=== PATIENT | female | born 1970 | race Caucasian/White ===

== ENCOUNTER 2016-08-06 03:47 | Inpatient (IN) | payer OTHER ==
[~2016-08-06] VITALS: Ht 162.6 cm; Wt 126.6 kg
--- NOTE | 2016-08-06 04:16 | ED GI/GU/ABDOMINAL COMPLAINT ---
See Addendum History of Present Illness General Chief Complaint: Abdominal Pain/Flank Pain Stated Complaint: ABD PAIN X 3 DAYS, NAUSEA, VOMITING, DIARRHEA Source: patient, family, old records Exam Limitations: no limitations Vital Signs & Intake/Output Vital Signs & Intake/Output Vital Signs Date Time Temp Pulse Resp B/P B/P Pulse O2 O2 Flow FiO2 Mean Ox Delivery Rate 08/06 624 97.4 87 18 109/55 97 Room Air 08/06 440 98.6 100 18 123/73 93 Room Air 08/06 044 95 Room Air Allergies Coded Allergies: No Known Allergies (08/06/16) Reconcile Medications Levothyroxine Sodium (Synthroid) 100 MCG TABLET 1 TAB PO DAILY HYPOTHYROID ( Reported) Metformin HCl (Metformin HCl ER) 500 MG TAB.ER.24H 1 TAB PO BID BORDERLINE DM (Reported) Triage Nurses Notes Reviewed? yes LMP (ages 10-50): unknown ? n Is pt currently ? No Onset: 3 days Duration: day(s):, constant, continues in ED Timing: recent history Quality/Severity: aching, cramping, moderate, vomiting Location: suprapubic Radiation: no radiation Activities at Onset: none Prior Abdominal Problems: none Past Sexual History: Unobtainable at this time Modifying Factors: Worsens With: eating, movement, palpation. Associated Symptoms: abdominal pain, diaphoresis, fever/chills, loss of appetite , nausea/vomiting HPI: 3 days prior to admission patient complains of achy progressive suprapubic pain nonradiating constant associated with nausea vomiting decreased appetite dysuria chills. She denies fever chest pain cough shortness of breath headache rash bleeding. Past History Travel History Traveled to [place] past 21 day No Medical History Any Pertinent Medical History? none Surgical History Surgical History: Family History Hx Contributory? No Review of Systems Review of Systems Constitutional: Reports: see HPI, chills, malaise. EENTM: Reports: no symptoms. Respiratory: Reports: no symptoms. Cardiovascular: Reports: no symptoms. GI: Reports: see HPI, abdominal pain, nausea, vomiting. Genitourinary: Reports: see HPI, dysuria. Musculoskeletal: Reports: no symptoms. Skin: Reports: no symptoms. Neurological/Psychological: Reports: no symptoms. Hematologic/Endocrine: Reports: no symptoms. Immunologic/Allergic: Reports: no symptoms. All Other Systems: Reviewed and Negative Physical Exam Physical Exam General Appearance: well developed/nourished, alert, awake, anxious, moderate distress, obese Head: atraumatic, normal appearance Eyes: Bilateral: normal appearance, PERRL, EOMI, normal inspection. Ears, Nose, Throat, Mouth: hearing grossly normal, dry mucous membranes Neck: normal inspection, supple, full range of motion, normal alignment Respiratory: normal breath sounds, chest non-tender, no respiratory distress, quiet respiration, lungs clear Cardiovascular: regular rate/rhythm, normal peripheral pulses, norml femoral pulses equa Peripheral Pulses: 4+ carotid (R), 4+ carotid (L) Gastrointestinal: normal bowel sounds, soft, no organomegaly, guarding, tenderness Back: normal inspection, normal range of motion Extremities: normal range of motion, no ligament instability Neurologic/Psych: no motor/sensory deficits, awake, alert, oriented x 3, normal gait, normal mood/affect, 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 No Severe Sepsis Present: No Septic Shock Present: No Progress Differential Diagnosis: cholecystitis, diverticulitis, gastritis, UTI/pyelo Plan of Care: Orders Procedure Date/time Status Admit to inpatient 08/06 0715 Active URINE 08/07 411 Complete URINALYSIS 08/07 411 Complete LIPASE 08/07 411 Complete COMPREHENSIVE METABOLIC PANEL 08/07 411 Complete CBC WITHOUT DIFFERENTIAL 08/07 411 Complete Current Medications Sig/Evy Start time Last Medication Dose Stop Time Status Admin Sodium Chloride 1,000 ML BOLUS ONE 08/06 0630 AC 08/06 (Normal Saline 0.9%) 08/06 0729 0634 Laboratory Tests 08/06/16 0448: Anion Gap 13, Estimated GFR > 60, BUN/Creatinine Ratio 17.1, Glucose 92, Calcium 8.8, Total Bilirubin 1.3, AST 15, ALT 34, Alkaline Phosphatase 89, Total Protein 6.5, Albumin 3.6, Globulin 2.9, Albumin/Globulin Ratio 1.2, Lipase 11 L 08/06/16 0422: CBC w Diff MAN DIFF ORDERED, RBC 4.72, MCV 91.0, MCH 30.9, RDW 12.9, MPV 6.9 L, Gran % 83.0 H, Lymphocytes % 10.4 L, Monocytes % 6.2, Eosinophils % 0.3, Basophils % 0.1, Absolute Granulocytes 17.8 H, Segmented Neutrophils 87 H, Absolute Lymphocytes 2.2, Lymphocytes 9 L, Monocytes 3, Absolute Monocytes 1.3 H, Eosinophils 1, Absolute Eosinophils 0.1, Absolute Basophils 0, Platelet Estimate INCREASED, Polychromasia 1+, Ovalocytes FEW, Stomatocytes FEW, PUBS MCHC 34.0, Fld Total RBCs Counted 100 08/06/16 0416: Urine Color YEL, Urine Clarity HAZY H, Urine pH 6.0, Ur Specific [place] 1.020, Urine Protein 100 H, Urine Ketones >=80, Urine Nitrite NEG, Urine Bilirubin NEG @ICTO, Urine Urobilinogen 1.0, Ur Leukocyte Esterase NEG, Ur Microscopic SEDIMENT EXAMINED, Urine RBC 1-3, Urine WBC 3-5 H, Ur Epithelial Cells MOD H, Urine Bacteria MOD H, Hyaline Casts RARE H, Urine Hemoglobin TRACE-INTACT, Urine Glucose NEG, Urine Test NEGATIVE Diagnostic Imaging: Viewed by Me: CT Scan. Discussed w/RAD: CT Scan. Radiology Impression: Perforated diverticulitis without drainable fluid collections. Initial ED EKG: none Hand-Off Endorsed To: CHARI BLAKE,LAZ Shook Endorsed Time: 716 Pending: other (contact w Dr. Cristobal) Departure Departure Time of Disposition: 627 Disposition: STILL A PATIENT Condition: Stable Clinical Impression Primary Impression: Perforated diverticulum of large intestine Secondary Impressions: Leukocytosis, unspecified Qualifiers: Leukocytosis type: unspecified Qualified Code: D72.829 - Elevated white blood cell count, unspecified Departure Forms: Customer Survey General Discharge Information Admission Note Spoke With: GUMARO BLAKE,GRISELDA N. Documentation of Exam: Documentation of any treatments & extenuating circumstances including Concerns Regarding Discharge (functional status, medication knowledge or non-compliance, living conditions, etc.) that warrant an admission rather than observation: IV antibiotics serial lab exams IV analgesia NPO IV fluids surgical evaluation and management continuing care discharge planning.
[2016-08-06 04:33] LABS: ABSOLUTE BASOPHIL COUNT 0 /CUMM (0.0-0.2); ABSOLUTE EOSINOPHIL COUNT 0.1 /CUMM (0.0-0.7); ABSOLUTE GRANULOCYTE CT 17.8 /CUMM (1.4-6.5); ABSOLUTE LYMPH COUNT 2.2 /CUMM (1.2-3.4); ABSOLUTE MONOCYTE COUNT 1.3 /CUMM (0.10-0.60); BASOPHIL % 0.1 % (0.0-2.0); EOSINOPHIL % 0.3 % (0-5); HEMATOCRIT 42.9 % (37-47); MEAN CORPUSCULAR HGB 30.9 PG (27.0-31.0); MEAN PLATELET VOLUME 6.9 FL (7.4-10.4); PLATELET COUNT 435 /CUMM (130-400); RBC DISTRIBUTION WIDTH 12.9 % (11.5-14.5); RED BLOOD CELL CT 4.72 /CUMM (4.20-5.40); WHITE BLOOD CELL COUNT 21.5 /CUMM (4.8-10.8)
--- NOTE | 2016-08-06 06:19 | CT SCAN REPORT ---
EXAMINATION: CT ABDOMEN AND PELVIS WITH CONTRAST CLINICAL INFORMATION: Lower abdominal pain. COMPARISON: None. TECHNIQUE: Contiguous axial thin section helical images of the abdomen and pelvis were performed following the administration of 95 mL of intravenous Optiray 320. The data set was reformatted in the coronal and sagittal planes and reviewed on an independent workstation. DLP: 1545 mGy-cm. FINDINGS: The visualized lung bases are clear. The visualized portions of the heart are unremarkable. The liver is of normal size and attenuation without focal lesions nor intrahepatic biliary ductal dilation. A normal gallbladder is identified. There is no wall thickening or discernible pericholecystic fluid. The spleen, pancreas, adrenal glands are unremarkable. Both kidneys are of normal size and attenuation without hydronephrosis or nephrolithiasis. Following the administration of IV contrast, prompt symmetric nephrograms are displayed. There is no abdominal free fluid. There is neither mesenteric nor retroperitoneal lymphadenopathy. There are scattered nonpathologically enlarged mesenteric lymph nodes present. There is scattered sigmoid diverticulosis. About the sigmoid colon, there is wall thickening and extensive adjacent fat stranding. In addition, there is extraluminal gas. There are no drainable fluid collections. Otherwise, unremarkable unopacified loops of small and large bowel are present. There is no pelvic free fluid. The urinary bladder is unremarkable. There is neither pelvic nor inguinal lymphadenopathy. Bone windows: Neither sclerotic nor lytic bone lesions are identified. IMPRESSION: Perforated diverticulitis without drainable fluid collections. The aforementioned was communicated to Dr. Garcia at 0614 hours.
[2016-08-06] MEDS ORDERED: METFORMIN HCL500 M4 PO (06:26)
[2016-08-06] MEDS ORDERED: SYNTHROID100 MCG PO (06:26)
--- NOTE | 2016-08-06 08:17 | Admission Core Measures ---
Admission Lab Results I reviewed the following labs: Laboratory Tests 08/06 08/06 5901 8112 Chemistry Sodium (137 - 145 mmol/L) 133 L Potassium (3.5 - 5.1 mmol/L) 3.6 Chloride (98 - 107 mmol/L) 98 Carbon Dioxide (22 - 30 mmol/L) 22 Anion Gap (5 - 16) 13 BUN (7 - 17 mg/dL) 12 Creatinine (0.5 - 1.0 mg/dL) 0.7 Estimated GFR (>60 ml/min) > 60 BUN/Creatinine Ratio (7 - 25 %) 17.1 Glucose (65 - 99 mg/dL) 92 Calcium (8.4 - 10.2 mg/dL) 8.8 Total Bilirubin (0.2 - 1.3 mg/dL) 1.3 AST (14 - 36 U/L) 15 ALT (9 - 52 U/L) 34 Alkaline Phosphatase (<127 U/L) 89 Total Protein (6.3 - 8.2 g/dL) 6.5 Albumin (3.5 - 5.0 g/dL) 3.6 Globulin (1.9 - 4.2 gm/dL) 2.9 Albumin/Globulin Ratio (1.1 - 2.2 %) 1.2 Lipase (23 - 300 U/L) 11 L Hematology CBC w Diff MAN DIFF ORDERED WBC (4.8 - 10.8 /CUMM) 21.5 H RBC (4.20 - 5.40 /CUMM) 4.72 Hgb (12.0 - 16.0 G/DL) 14.6 Hct (37 - 47 %) 42.9 MCV (81.0 - 99.0 FL) 91.0 MCH (27.0 - 31.0 PG) 30.9 RDW (11.5 - 14.5 %) 12.9 Plt Count (130 - 400 /CUMM) 435 H MPV (7.4 - 10.4 FL) 6.9 L Gran % (42.2 - 75.2 %) 83.0 H Lymphocytes % (20.5 - 51.1 %) 10.4 L Monocytes % (1.7 - 9.3 %) 6.2 Eosinophils % (0 - 5 %) 0.3 Basophils % (0.0 - 2.0 %) 0.1 Absolute Granulocytes (1.4 - 6.5 /CUMM) 17.8 H Segmented Neutrophils (42.2 - 75.2 %) 87 H Absolute Lymphocytes (1.2 - 3.4 /CUMM) 2.2 Lymphocytes (20.5 - 51.1 %) 9 L Monocytes (1.7 - 9.3 %) 3 Absolute Monocytes (0.10 - 0.60 /CUMM) 1.3 H Eosinophils (0 - 5.0 %) 1 Absolute Eosinophils (0.0 - 0.7 /CUMM) 0.1 Absolute Basophils (0.0 - 0.2 /CUMM) 0 Platelet Estimate (ADEQUATE) INCREASED Polychromasia 1+ Ovalocytes FEW Stomatocytes FEW PUBS MCHC (33.0 - 37.0 G/DL) 34.0 Other Body Source Fld Total RBCs Counted (%) 100 08/06 0416 Urines Urine Color (YEL,AMB,STR) YEL Urine Clarity (CLEAR) HAZY H Urine pH (5.0 - 8.0) 6.0 Ur Specific [place] (1.001 - 1.035) 1.020 Urine Protein (NEG,<30 MG/DL) 100 H Urine Ketones (NEG) >=80 Urine Nitrite (NEG) NEG Urine Bilirubin (NEG) NEG@ICTO Urine Urobilinogen (0.1 - 1.0 EU/dl) 1.0 Ur Leukocyte Esterase (NEG) NEG Ur Microscopic SEDIMENT EXAMINED Urine RBC (0 - 5 /HPF) 1-3 Urine WBC (0 - 2 /HPF) 3-5 H Ur Epithelial Cells (NONE,FEW) MOD H Urine Bacteria (NEG/NONE) MOD H Hyaline Casts (0/LPF) RARE H Urine Hemoglobin (NEG) TRACE-INTACT Urine Glucose (N MG/DL) NEG Urine Test NEGATIVE Admission Meds I reviewed the following Meds: Current Medications Sig/Evy Start time Last Medication Dose Stop Time Status Admin Ceftriaxone Sodium 1,000 MG DAILY 08/07 0600 UNVr (Rocephin) Heparin Sodium 5,000 UNIT Q8 08/06 1400 UNVr (Porcine) Ketorolac 30 MG Q6-PRN PRN 08/06 0815 UNVr Tromethamine (Toradol) Levothyroxine Sodium 0.1 MG DAILY AC 08/06 0815 UNVr (Synthroid) Metronidazole 500 MG IQ8 08/06 1400 UNVr (Flagyl) N/A 1 UNIT (No Carrier) Non-Formulary 0 SEE ADMIN CRITERIA 08/06 814 UNVr Medication (NON FORMULARY) Ondansetron HCl 4 MG Q6P PRN 08/06 814 UNVr (Zofran) Pantoprazole Sodium 40 MG DAILY 08/06 1000 UNVr (Protonix) Potassium Chloride 20 MEQ Q8H 08/06 814 UNVr (KCl 20MEQ in D5W NS 1000ML) Dextrose/Sodium 1,000 ML Chloride (D5-Normal Saline) Acute Coronary Syndrome Inclusion Criteria ACS Diagnosis No Inpatient Core Measures LDL Reminder: If No, please order W/I first 24hr of stay Congestive Heart Failure Inclusion Criteria CHF Diagnosis No Cerebrovascular accident Inclusion Criteria CVA/TIA Diagnosis No Inpatient Core Measures Bedside Swallow Eval Reminder: If BSE failed, place ST order Antithrombotic Reminder: Order Antithrombotic Medication by end of day 2 Antithrombotic Reminder: Document Reason Antithrombotic Not ordered by end of day 2 AFIB/Flutter Reminder: If Present, add to problem list AFIB/Flutter Reminder: Order Anticoag Medication for pts with AFIB/Flutter Atherosclerosis Reminder: If Present, add to problem list LDL Reminder: If No, please order W/I first 24hr of stay PT Order Reminder: If No, please order Venous thromboembolism Inpatient Core Measures VTE Risk Factors: Age > 40, Obesity No [facility] VTE prophylaxis d/t No contraindications No VTE Pharm Prophylaxis d/t No contraindications Inclusion Criteria - Per Current guidelines, there needs to be overlap - treatment for the first 5 days of Warfarin therapy. - Parenteral Anticoagulation (IV or SC) needs to be - given along with Warfarin therapy. VTE Diagnosis No VTE Type NONE VTE Confirmed by (Test) NONE Problem List As ranked by this Provider includes Assessment & Plan 1. Diverticulitis of colon with perforation HOME MEDS Home Med List Levothyroxine Sodium (Synthroid) 100 MCG TABLET 1 TAB PO DAILY HYPOTHYROID ( Reported) Metformin HCl (Metformin HCl ER) 500 MG TAB.ER.24H 1 TAB PO BID BORDERLINE DM (Reported)
--- NOTE | 2016-08-06 08:28 | History & Physical Pre-Op ---
General Information and HPI MD Statement: I have seen and personally examined MILES JOHNSON and documented this H&P. The patient is a 45 year old F who presented with a patient stated chief complaint of [ABDOMINAL PAIN]. Source of Information: patient Exam Limitations: no limitations History of Present Illness: This 45 year old morbidly obese white female with history of hypothyroidism presents with 2 days of abdominal pain, nausea, and bloating. She recalls having similar symptoms 3 weeks ago as well, which seemed to resolve after a few days. Due to the "crampy pain" with this most recent episode, which she reports as lower central discomfort, aggravated by movement, she presented to the ED this morning. She recalls a fever of 102 associated with chills & sweats at home in the last 2 days. She reports decreased appetite and nausea since the onset of her abdominal pain, so she has not been eating food for the last 2-3 days. Reports diarrhea and pain with urination, but not urinating air or gas and no true dysuria. She does not believe she has had an episode like this in her past. Allergies/Medications Allergies: Coded Allergies: No Known Allergies (08/06/16) Home Med list Levothyroxine Sodium (Synthroid) 100 MCG TABLET 1 TAB PO DAILY HYPOTHYROID ( Reported) Metformin HCl (Metformin HCl ER) 500 MG TAB.ER.24H 1 TAB PO BID BORDERLINE DM (Reported) Past History Medical History Neurological: NONE EENT: NONE Cardiovascular: NONE Respiratory: NONE Gastrointestinal: NONE Hepatic: NONE Renal: NONE Musculoskeletal: NONE Psychiatric: NONE Endocrine: hypothyroidism, BORDERLINE DM Blood Disorders: NONE Cancer(s): NONE SINK CUTTER/Reproductive: NONE Surgical History Pertinent Surgical History: Past Family/Social History Family History Relations & Conditions if any MOTHER Breast cancer in mother FATHER Stomach cancer Psychosocial History Where Do You Live? Home Who Do You Live With? spouse, child Services at Home None Primary Language: Slovak Smoking Status: Never Smoked ETOH Use: occasional use Review of Systems Review of Systems: admits: abdominal pain, nausea, fevers/chills/sweats, bloating, diarrhea denies: shortness of breath, chest pains, dizziness Exam & Diagnostic Data Last 24 Hrs of Vital Signs/I&O Vital Signs Date Time Temp Pulse Resp B/P B/P Pulse O2 O2 Flow FiO2 Mean Ox Delivery Rate 08/06 0625 97.4 87 18 109/55 97 Room Air 08/06 0441 98.6 100 18 123/73 93 Room Air 08/06 0440 95 Room Air Intake & Output 08/06 1600 08/06 0800 08/06 0000 Intake Total 1400 Output Total 200 Balance 1200 Intake, IV 1400 Output, Urine 200 Patient 280 lb Weight Weight Reported by Patient Measurement Method Physical Exam: General - alert & oriented x 3. comfortable. no acute distress. Skin - warm, dry, and smooth Lungs - clear bilaterally. no w/r/r. Cardiac - s1s2. reg. Abdomen - obese. active bowel sounds appreciated. mild suprapubic tenderness. no acute abdominal findings. Extremities - warm bilaterally. no c/c/e. calves soft and nontender b/l. pulses equal throughout. Neuro - no focal deficits. motor and sensory function equal and full. Last 24 Hrs of Labs/Perico: Laboratory Tests 08/06/16447: Anion Gap 13, Estimated GFR > 60, BUN/Creatinine Ratio 17.1, Glucose 92, Calcium 8.8, Total Bilirubin 1.3, AST 15, ALT 34, Alkaline Phosphatase 89, Total Protein 6.5, Albumin 3.6, Globulin 2.9, Albumin/Globulin Ratio 1.2, Lipase 11 L 08/06/16 0422: CBC w Diff MAN DIFF ORDERED, RBC 4.72, MCV 91.0, MCH 30.9, RDW 12.9, MPV 6.9 L, Gran % 83.0 H, Lymphocytes % 10.4 L, Monocytes % 6.2, Eosinophils % 0.3, Basophils % 0.1, Absolute Granulocytes 17.8 H, Segmented Neutrophils 87 H, Absolute Lymphocytes 2.2, Lymphocytes 9 L, Monocytes 3, Absolute Monocytes 1.3 H, Eosinophils 1, Absolute Eosinophils 0.1, Absolute Basophils 0, Platelet Estimate INCREASED, Polychromasia 1+, Ovalocytes FEW, Stomatocytes FEW, PUBS MCHC 34.0, Fld Total RBCs Counted 100 08/06/16 0416: Urine Color YEL, Urine Clarity HAZY H, Urine pH 6.0, Ur Specific [place] 1.020, Urine Protein 100 H, Urine Ketones >=80, Urine Nitrite NEG, Urine Bilirubin NEG @ICTO, Urine Urobilinogen 1.0, Ur Leukocyte Esterase NEG, Ur Microscopic SEDIMENT EXAMINED, Urine RBC 1-3, Urine WBC 3-5 H, Ur Epithelial Cells MOD H, Urine Bacteria MOD H, Hyaline Casts RARE H, Urine Hemoglobin TRACE-INTACT, Urine Glucose NEG, Urine Test NEGATIVE Diagnostic Data Other Results EXAM TYPE: CAT - CT ABD & PELVIS W IV CONTRAST EXAMINATION: CT ABDOMEN AND PELVIS WITH CONTRAST CLINICAL INFORMATION: Lower abdominal pain. COMPARISON: None. TECHNIQUE: Contiguous axial thin section helical images of the abdomen and pelvis were performed following the administration of 95 mL of intravenous Optiray 320. The data set was reformatted in the coronal and sagittal planes and reviewed on an independent workstation. DLP: 1545 mGy-cm. FINDINGS: The visualized lung bases are clear. The visualized portions of the heart are unremarkable. The liver is of normal size and attenuation without focal lesions nor intrahepatic biliary ductal dilation. A normal gallbladder is identified. There is no wall thickening or discernible pericholecystic fluid. The spleen, pancreas, adrenal glands are unremarkable. Both kidneys are of normal size and attenuation without hydronephrosis or nephrolithiasis. Following the administration of IV contrast, prompt symmetric nephrograms are displayed. There is no abdominal free fluid. There is neither mesenteric nor retroperitoneal lymphadenopathy. There are scattered nonpathologically enlarged mesenteric lymph nodes present. There is scattered sigmoid diverticulosis. About the sigmoid colon, there is wall thickening and extensive adjacent fat stranding. In addition, there is extraluminal gas. There are no drainable fluid collections. Otherwise, unremarkable unopacified loops of small and large bowel are present. There is no pelvic free fluid. The urinary bladder is unremarkable. There is neither pelvic nor inguinal lymphadenopathy. Bone windows: Neither sclerotic nor lytic bone lesions are identified. IMPRESSION: Perforated diverticulitis without drainable fluid collections. The aforementioned was communicated to Dr. Garcia at 0614 hours. DICTATED BY: MOISES BENJAMIN MD DATE/TIME DICTATED:08/06/16556 [employer] TECHNICIAN:FARHEEN DATE/TIME TRANSCRIBED:08/06/16556 Assessment/Plan Assessment/Plan: This 45 year old white female with hx hypothyroidism, pre-diabetes, is here with seemingly first episode of acute perforated diverticulitis without abscess and without acute abdominal findings npo / ivf toradol prn pain control continue iv rocephin / flagyl hep sc - dvt ppx protonix iv - gi ppx synthroid / cytomel (home meds) ordered hold metformin for now serial labs and exams d/w As Ranked By This Provider Problem List: 1. Diverticulitis of colon with perforation 2. Morbid obesity 3. Hypothyroidism
[2016-08-06] MEDS ORDERED: CYTOMEL25 MC1 PO (08:34)
[2016-08-06 14:05] VITALS: BP 118/80
--- NOTE | 2016-08-06 17:24 | History & Physical Pre-Op ---
General Information and HPI MD Statement: I have seen and personally examined MILES JOHNSON and documented this H&P. The patient is a 45 year old F who presented with a patient stated chief complaint of []. Source of Information: patient Exam Limitations: no limitations History of Present Illness: CC: abdominal pain HPI: 45-year-old overweight diabetic nonsmoker on medications for hypothyroidism who is been feeling intermittently nauseous for the past month but it wasn't until to 3 days ago when she started having some lower crampy abdominal pain with associated vomiting and diarrhea and chills initially she was doubled over the pain is somewhat better but persistent so she came to the ER, now the pain is not worse on movement there is some dysuria no radiation of the pain to the back and no upper abdominal pain she is still having bowel movements a few of them were green and loose, no obvious blood. This is the first time she's had an episode like this. Otherwise no unusual meals or straining or dehydration recently. Otherwise no changes bowel habits, weight or appetite. I've reviewed the [facility]. No history of GERD, PUD, bleeding problems, heart disease or issues with anesthesia. Allergies/Medications Allergies: Coded Allergies: No Known Allergies (08/06/16) Home Med list Levothyroxine Sodium (Synthroid) 100 MCG TABLET 1 TAB PO DAILY HYPOTHYROID ( Reported) Liothyronine Sodium (Cytomel) 25 MCG TABLET 1 TAB PO BID hypothyroidism ( Reported) Metformin HCl (Metformin HCl ER) 500 MG TAB.ER.24H 1 TAB PO BID BORDERLINE DM (Reported) Past History Medical History Neurological: NONE EENT: NONE Cardiovascular: NONE Respiratory: NONE Gastrointestinal: NONE Hepatic: NONE Renal: NONE Musculoskeletal: NONE Psychiatric: NONE Endocrine: hypothyroidism, BORDERLINE DM Blood Disorders: NONE Cancer(s): NONE 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 Home Who Do You Live With? spouse, child Services at Home None Primary Language: Spanish Smoking Status: Never Smoked ETOH Use: occasional use Review of Systems Review of Systems: Constitutional: No fever, sweats or weight loss ENMT: No sore throat Cardiovascular: No chest pain, palpitations or leg swelling Respiratory: No shortness of breath, cough, or sputum or dyspnea on exertion GI: No GERD or bleeding per rectum : No dysuria or hematuria Musculoskeletal: No new muscle weakness, bone or joint pain Skin / Breast: No jaundice, rashes or itching Psychiatric: No history of drug or alcohol abuse no depression or anxiety Hematologic / lymphatic system: No problems with excessive bleeding, bruising, or blood clots Exam & Diagnostic Data Last 24 Hrs of Vital Signs/I&O I reviewed Vital Signs Date Time Temp Pulse Resp B/P B/P Pulse O2 O2 Flow FiO2 Mean Ox Delivery Rate 08/06 1405 99.8 81 20 118/80 98 Room Air 08/06 1322 97.8 78 18 128/68 97 Room Air 08/06 1125 98.0 80 18 133/67 98 Room Air 08/06 0924 98.0 88 18 126/88 98 Room Air 08/06 0625 97.4 87 18 109/55 97 Room Air 08/06 0441 98.6 100 18 123/73 93 Room Air 08/06 0440 95 Room Air I reviewed Intake & Output 08/06 1600 08/06 0800 08/06 0000 Intake Total 125 1400 Output Total 200 Balance 125 1200 Intake, IV 125 1400 Output, Urine 200 Patient 280 lb 280 lb Weight Weight Reported by Patient Measurement Method Physical Exam: Constitutional: pleasant, no acute distress, conversant Eyes: sclera anicteric ENMT: ears and nose atraumatic, moist mucous membranes, good dentition, no lip lesions Neck: Supple, trachea is midline, no cervical or supraclavicular adenopathy and no palpable thyromegaly Cardiovascular: S1, S2, no murmurs, no peripheral edema Respiratory: clear to auscultation with normal respiratory effort and no intercostal retractions GI: abdomen soft, suprapubic tenderness no rebound, nondistended, no palpable hepatosplenomegaly Extremities / lymphatics: symmetrically warm, free range of motion no peripheral edema, no cervical, supraclavicular, axillary, or inguinal adenopathy Musculoskeletal: Normal gait and station, no digital cyanosis, good muscle strength and tone no atrophy, motor grossly 5 out of 5 throughout Skin: no jaundice, no rashes warm, nondiaphoretic, no areas of erythema or induration Psychiatric: mood and affect are appropriate and alert and oriented to person place and time Last 24 Hrs of Labs/Perico: I reviewed Laboratory Tests 08/06/16 0448: Anion Gap 13, Estimated GFR > 60, BUN/Creatinine Ratio 17.1, Glucose 92, Calcium 8.8, Total Bilirubin 1.3, AST 15, ALT 34, Alkaline Phosphatase 89, Total Protein 6.5, Albumin 3.6, Globulin 2.9, Albumin/Globulin Ratio 1.2, Lipase 11 L 08/06/16 0422: CBC w Diff MAN DIFF ORDERED, RBC 4.72, MCV 91.0, MCH 30.9, RDW 12.9, MPV 6.9 L, Gran % 83.0 H, Lymphocytes % 10.4 L, Monocytes % 6.2, Eosinophils % 0.3, Basophils % 0.1, Absolute Granulocytes 17.8 H, Segmented Neutrophils 87 H, Absolute Lymphocytes 2.2, Lymphocytes 9 L, Monocytes 3, Absolute Monocytes 1.3 H, Eosinophils 1, Absolute Eosinophils 0.1, Absolute Basophils 0, Platelet Estimate INCREASED, Polychromasia 1+, Ovalocytes FEW, Stomatocytes FEW, PUBS MCHC 34.0, Fld Total RBCs Counted 100 08/06/16 0416: Urine Color YEL, Urine Clarity HAZY H, Urine pH 6.0, Ur Specific [place] 1.020, Urine Protein 100 H, Urine Ketones >=80, Urine Nitrite NEG, Urine Bilirubin NEG @ICTO, Urine Urobilinogen 1.0, Ur Leukocyte Esterase NEG, Ur Microscopic SEDIMENT EXAMINED, Urine RBC 1-3, Urine WBC 3-5 H, Ur Epithelial Cells MOD H, Urine Bacteria MOD H, Hyaline Casts RARE H, Urine Hemoglobin TRACE-INTACT, Urine Glucose NEG, Urine Test NEGATIVE Diagnostic Data Other Results EXAM TYPE: CAT - CT ABD & PELVIS W IV CONTRAST EXAMINATION: CT ABDOMEN AND PELVIS WITH CONTRAST CLINICAL INFORMATION: Lower abdominal pain. COMPARISON: None. TECHNIQUE: Contiguous axial thin section helical images of the abdomen and pelvis were performed following the administration of 95 mL of intravenous Optiray 320. The data set was reformatted in the coronal and sagittal planes and reviewed on an independent workstation. DLP: 1545 mGy-cm. FINDINGS: The visualized lung bases are clear. The visualized portions of the heart are unremarkable. The liver is of normal size and attenuation without focal lesions nor intrahepatic biliary ductal dilation. A normal gallbladder is identified. There is no wall thickening or discernible pericholecystic fluid. The spleen, pancreas, adrenal glands are unremarkable. Both kidneys are of normal size and attenuation without hydronephrosis or nephrolithiasis. Following the administration of IV contrast, prompt symmetric nephrograms are displayed. There is no abdominal free fluid. There is neither mesenteric nor retroperitoneal lymphadenopathy. There are scattered nonpathologically enlarged mesenteric lymph nodes present. There is scattered sigmoid diverticulosis. About the sigmoid colon, there is wall thickening and extensive adjacent fat stranding. In addition, there is extraluminal gas. There are no drainable fluid collections. Otherwise, unremarkable unopacified loops of small and large bowel are present. There is no pelvic free fluid. The urinary bladder is unremarkable. There is neither pelvic nor inguinal lymphadenopathy. Bone windows: Neither sclerotic nor lytic bone lesions are identified. IMPRESSION: Perforated diverticulitis without drainable fluid collections. The aforementioned was communicated to Dr. Garcia at 0614 hours. DICTATED BY: MOISES BENJAMIN MD DATE/TIME DICTATED:08/06/16556 VISUAL MERCHANDISING MANAGER:FARHEEN DATE/TIME TRANSCRIBED:08/06/16556 Assessment/Plan Assessment/Plan: Studies I reviewed today's CT scan on PACS myself which shows inflammation at the apex of the sigmoid colon with some contained small areas of free gas within this area of inflammation. Impression is acute diverticulitis in the sigmoid without any obvious signs of free perforation peritonitis or abscess. But as I explained to her the spectrum of this illness she is at risk for worsening, even to the point of requiring emergency surgery Urena's colostomy. So in the meantime we'll have to watch her for signs of worsening such as tachycardia and fever and worsening abdominal exam also we'll monitor serial labs serial exams keep her nothing by mouth, continue IV antibiotics would not advance diet until her pain significantly improves and if she tolerates it would not even consider discharging her until she has a bowel movement without significant pain, I told her that this disease tends to smolder and she may be here for a few days especially given the risk of emergency surgery. As Ranked By This Provider Problem List: 1. Sigmoid diverticulitis 2. Diabetes
[2016-08-06 22:28] VITALS: BP 102/58
[2016-08-07 06:30] VITALS: BP 112/68
[2016-08-07 08:13] LABS: ABSOLUTE BASOPHIL COUNT 0 /CUMM (0.0-0.2); ABSOLUTE EOSINOPHIL COUNT 0.2 /CUMM (0.0-0.7); ABSOLUTE LYMPH COUNT 1.1 /CUMM (1.2-3.4); ABSOLUTE MONOCYTE COUNT 0.7 /CUMM (0.10-0.60); BASOPHIL % 0.3 % (0.0-2.0); EOSINOPHIL % 2.3 % (0-5); GRANULOCYTE % 79.6 % (42.2-75.2); MEAN CORPUSCULAR HGB 30.8 PG (27.0-31.0); MEAN CORPUSCULAR HGB CONC 33.6 G/DL (33.0-37.0); MEAN CORPUSCULAR VOLUME 91.7 FL (81.0-99.0); MEAN PLATELET VOLUME 7.1 FL (7.4-10.4); PLATELET COUNT 301 /CUMM (130-400); RBC DISTRIBUTION WIDTH 12.6 % (11.5-14.5); RED BLOOD CELL CT 3.76 /CUMM (4.20-5.40)
[2016-08-07 08:58] LABS: HEMATOCRIT 34.5 % (37-47)
--- NOTE | 2016-08-07 10:24 | PN- General Surgery ---
See Addendum Subjective Subjective: HD 2 with microperf/diverrticulitis Pt is oob, ambulating Denies any pain or tenderness at all No nausea, +flatus, +bm this morning - soft Objective Vital Signs and I&Os Vital Signs Date Time Temp Pulse Resp B/P B/P Pulse O2 O2 Flow FiO2 Mean Ox Delivery Rate 08/07 0630 98.3 89 18 112/68 96 Room Air 08/06 2228 98.1 84 20 102/58 96 Room Air 08/06 1405 99.8 81 20 118/80 98 Room Air 08/06 1322 97.8 78 18 128/68 97 Room Air 08/06 1125 98.0 80 18 133/67 98 Room Air Intake & Output 08/07 1600 08/07 0800 08/07 0000 08/06 1600 08/06 0800 08/06 0000 Intake Total 1000 322 788 8757 Output Total 900 200 Balance 100 348 416 2826 Intake, IV 1000 828 292 6361 Intake, Oral 0 0 Output, Urine 900 200 Patient 280 lb 280 lb Weight Weight Reported by Patient Measurement Method Physical Exam: Last fever 99.8 at 2pm yesterday, afebrile, all vss General: alert and oriented, ambulating, dressed, in no distress Chest: clear bilaterally, RRR Abd: soft, nondistended, nontender even to deep palpation of all 4 quadrants, good bs Ext: warm, no edema Current Medications: Current Medications Sig/Evy Start time Last Medication Dose Route Stop Time Status Admin Ceftriaxone Sodium 1,000 MG DAILY 08/07 0600 AC 08/07 IV 0616 Heparin Sodium 5,000 UNIT Q8 08/06 1400 AC (Porcine) SC Ketorolac 0 .STK-MED ONE 08/06 1308 DC Tromethamine .ROUTE Ketorolac 30 MG Q6-PRN PRN 08/06 0815 AC 08/06 Tromethamine IV 1308 Levothyroxine Sodium 0.1 MG DAILY AC 08/06 0815 AC 08/07 PO 0616 Liothyronine Sodium 25 MCG BID 08/06 0815 AC 08/07 PO 0907 Metronidazole 500 MG IQ8 08/06 1400 AC 08/07 N/A 1 UNIT IV 0752 Ondansetron HCl 4 MG Q6P PRN 08/06 0815 AC IV Pantoprazole Sodium 40 MG DAILY 08/06 1000 AC 08/07 IV 0907 Potassium Chloride 20 MEQ Q8H 08/06 0815 AC 08/07 Dextrose/Sodium 1,000 ML IV 0907 Chloride Results Last 48 Hours of Labs: Laboratory Tests 08/07 08/06 0700 0448 Chemistry Sodium (137 - 145 mmol/L) 138 133 L Potassium (3.5 - 5.1 mmol/L) 4.1 3.6 Chloride (98 - 107 mmol/L) 107 98 Carbon Dioxide (22 - 30 mmol/L) 23 22 Anion Gap (5 - 16) 8 13 BUN (7 - 17 mg/dL) 10 12 Creatinine (0.5 - 1.0 mg/dL) 0.6 0.7 Estimated GFR (>60 ml/min) > 60 > 60 BUN/Creatinine Ratio (7 - 25 %) 16.7 17.1 Glucose (65 - 99 mg/dL) 98 92 Calcium (8.4 - 10.2 mg/dL) 8.8 Total Bilirubin (0.2 - 1.3 mg/dL) 1.3 AST (14 - 36 U/L) 15 ALT (9 - 52 U/L) 34 Alkaline Phosphatase (<127 U/L) 89 Total Protein (6.3 - 8.2 g/dL) 6.5 Albumin (3.5 - 5.0 g/dL) 3.6 Globulin (1.9 - 4.2 gm/dL) 2.9 Albumin/Globulin Ratio (1.1 - 2.2 %) 1.2 Lipase (23 - 300 U/L) 11 L Hematology CBC w Diff NO MAN DIFF REQ WBC (4.8 - 10.8 /CUMM) 10.0 RBC (4.20 - 5.40 /CUMM) 3.76 L Hgb (12.0 - 16.0 G/DL) 11.6 L Hct (37 - 47 %) 34.5 L MCV (81.0 - 99.0 FL) 91.7 MCH (27.0 - 31.0 PG) 30.8 RDW (11.5 - 14.5 %) 12.6 Plt Count (130 - 400 /CUMM) 301 MPV (7.4 - 10.4 FL) 7.1 L Gran % (42.2 - 75.2 %) 79.6 H Lymphocytes % (20.5 - 51.1 %) 10.8 L Monocytes % (1.7 - 9.3 %) 7.0 Eosinophils % (0 - 5 %) 2.3 Basophils % (0.0 - 2.0 %) 0.3 Absolute Granulocytes (1.4 - 6.5 /CUMM) 8.0 H Absolute Lymphocytes (1.2 - 3.4 /CUMM) 1.1 L Absolute Monocytes (0.10 - 0.60 /CUMM) 0.7 H Absolute Eosinophils (0.0 - 0.7 /CUMM) 0.2 Absolute Basophils (0.0 - 0.2 /CUMM) 0 PUBS MCHC (33.0 - 37.0 G/DL) 33.6 08/06 08/06 0422 0416 Hematology CBC w Diff MAN DIFF ORDERED WBC (4.8 - 10.8 /CUMM) 21.5 H RBC (4.20 - 5.40 /CUMM) 4.72 Hgb (12.0 - 16.0 G/DL) 14.6 Hct (37 - 47 %) 42.9 MCV (81.0 - 99.0 FL) 91.0 MCH (27.0 - 31.0 PG) 30.9 RDW (11.5 - 14.5 %) 12.9 Plt Count (130 - 400 /CUMM) 435 H MPV (7.4 - 10.4 FL) 6.9 L Gran % (42.2 - 75.2 %) 83.0 H Lymphocytes % (20.5 - 51.1 %) 10.4 L Monocytes % (1.7 - 9.3 %) 6.2 Eosinophils % (0 - 5 %) 0.3 Basophils % (0.0 - 2.0 %) 0.1 Absolute Granulocytes (1.4 - 6.5 /CUMM) 17.8 H Segmented Neutrophils (42.2 - 75.2 %) 87 H Absolute Lymphocytes (1.2 - 3.4 /CUMM) 2.2 Lymphocytes (20.5 - 51.1 %) 9 L Monocytes (1.7 - 9.3 %) 3 Absolute Monocytes (0.10 - 0.60 /CUMM) 1.3 H Eosinophils (0 - 5.0 %) 1 Absolute Eosinophils (0.0 - 0.7 /CUMM) 0.1 Absolute Basophils (0.0 - 0.2 /CUMM) 0 Platelet Estimate (ADEQUATE) INCREASED Polychromasia 1+ Ovalocytes FEW Stomatocytes FEW PUBS MCHC (33.0 - 37.0 G/DL) 34.0 Other Body Source Fld Total RBCs Counted (%) 100 Urines Urine Color (YEL,AMB,STR) YEL Urine Clarity (CLEAR) HAZY H Urine pH (5.0 - 8.0) 6.0 Ur Specific [place] (1.001 - 1.035) 1.020 Urine Protein (NEG,<30 MG/DL) 100 H Urine Ketones (NEG) >=80 Urine Nitrite (NEG) NEG Urine Bilirubin (NEG) NEG@ICTO Urine Urobilinogen (0.1 - 1.0 EU/dl) 1.0 Ur Leukocyte Esterase (NEG) NEG Ur Microscopic SEDIMENT EXAMINED Urine RBC (0 - 5 /HPF) 1-3 Urine WBC (0 - 2 /HPF) 3-5 H Ur Epithelial Cells (NONE,FEW) MOD H Urine Bacteria (NEG/NONE) MOD H Hyaline Casts (0/LPF) RARE H Urine Hemoglobin (NEG) TRACE-INTACT Urine Glucose (N MG/DL) NEG Urine Test NEGATIVE Assessment/Plan Assessment/Plan 45 yo female admitted with microperf/diverticulitis - first episode WBC today 10 (21 yesterday) rocephin/flagyl npo exam benign-absolutely no pain, nondistended, +bm continue hep sc for dvt ppx, protonix IV for ppx Will discuss plan with Dr Gutiérrez Core Measures/Miscellaneous Venous Thromboembolism VTE Risk Factors: Age > 40, Surgery VTE Contraindications: No Contraindications VTE Diagnosis: No VTE Type: NONE VTE Confirmed by (Test): NONE Beta Ja Is Beta Ja a Home Med? No Antibiotics Is Patient on Antibiotics? Yes
[2016-08-07 14:00] VITALS: BP 116/74
[2016-08-07 22:50] VITALS: BP 120/60
[2016-08-08 06:30] VITALS: BP 128/76
[2016-08-08 08:23] LABS: ABSOLUTE BASOPHIL COUNT 0.1 /CUMM (0.0-0.2); ABSOLUTE EOSINOPHIL COUNT 0.3 /CUMM (0.0-0.7); ABSOLUTE GRANULOCYTE CT 6.6 /CUMM (1.4-6.5); ABSOLUTE LYMPH COUNT 1.7 /CUMM (1.2-3.4); ABSOLUTE MONOCYTE COUNT 0.8 /CUMM (0.10-0.60); BASOPHIL % 0.8 % (0.0-2.0); GRANULOCYTE % 70.1 % (42.2-75.2); HEMATOCRIT 37.1 % (37-47); MEAN CORPUSCULAR HGB CONC 33.7 G/DL (33.0-37.0); MEAN CORPUSCULAR VOLUME 91.8 FL (81.0-99.0); MEAN PLATELET VOLUME 7.2 FL (7.4-10.4); PLATELET COUNT 383 /CUMM (130-400); RBC DISTRIBUTION WIDTH 12.8 % (11.5-14.5); RED BLOOD CELL CT 4.04 /CUMM (4.20-5.40); WHITE BLOOD CELL COUNT 9.4 /CUMM (4.8-10.8)
--- NOTE | 2016-08-08 10:35 | PN- General Surgery ---
See Addendum Subjective Subjective: Pt is now HD #2 with perforated diverticulitis. Her symptoms continue to improve. She denies pain this morning. She does continue to have watery diarrhea , 4 episodes yesterday, and 2 so far this morning. This started after the onset of symptoms this week, but before administration of antibiotics. She is tolerating full liquids. No nausea or vomiting. She had a low grade temp last night, with a brief episode of associated dizziness, but completely resolved this morning. Otherwise denies NAVARRO, chest pain, SOB. She is voiding normally per her reports. Objective Vital Signs and I&Os Vital Signs Date Time Temp Pulse Resp B/P B/P Pulse O2 O2 Flow FiO2 Mean Ox Delivery Rate 08/08 0630 98.0 85 18 128/76 98 Room Air 08/07 2250 98.9 79 19 120/60 98 Room Air 08/07 1400 99.2 82 18 116/74 98 Room Air Intake & Output 08/08 1600 08/08 0800 08/08 0000 08/07 1600 08/07 0800 08/07 0000 Intake Total 8011 026 1888 1000 500 Output Total 900 Balance 2203 739 8005 100 500 Intake, IV 1000 256 274 0848 500 Intake, Oral 100 100 300 0 0 Number 2 2 Bowel Movements Output, Urine 900 Physical Exam: General: Pt is awake and alert. Ambulating in room independently. NAD. Cardiac: regular Pulm: cta bilaterally Abdomen: soft, nondistended. Essentially non-tender, although minor tenderness can be elicited with deep palpation in the supra-pubic area. No guarding, rigidity, or rebound tenderness. +BS are heard. Ext: no calf tenderness Results Last 48 Hours of Labs: Laboratory Tests 08/08 08/07 0625 0700 Chemistry Sodium (137 - 145 mmol/L) 140 138 Potassium (3.5 - 5.1 mmol/L) 3.9 4.1 Chloride (98 - 107 mmol/L) 105 107 Carbon Dioxide (22 - 30 mmol/L) 24 23 Anion Gap (5 - 16) 11 8 BUN (7 - 17 mg/dL) 7 10 Creatinine (0.5 - 1.0 mg/dL) 0.6 0.6 Estimated GFR (>60 ml/min) > 60 > 60 BUN/Creatinine Ratio (7 - 25 %) 11.7 16.7 Glucose (65 - 99 mg/dL) 98 Hematology CBC w Diff NO MAN DIFF REQ NO MAN DIFF REQ WBC (4.8 - 10.8 /CUMM) 9.4 10.0 RBC (4.20 - 5.40 /CUMM) 4.04 L 3.76 L Hgb (12.0 - 16.0 G/DL) 12.5 11.6 L Hct (37 - 47 %) 37.1 34.5 L MCV (81.0 - 99.0 FL) 91.8 91.7 MCH (27.0 - 31.0 PG) 31.0 30.8 RDW (11.5 - 14.5 %) 12.8 12.6 Plt Count (130 - 400 /CUMM) 383 301 MPV (7.4 - 10.4 FL) 7.2 L 7.1 L Gran % (42.2 - 75.2 %) 70.1 79.6 H Lymphocytes % (20.5 - 51.1 %) 18.0 L 10.8 L Monocytes % (1.7 - 9.3 %) 8.1 7.0 Eosinophils % (0 - 5 %) 3.0 2.3 Basophils % (0.0 - 2.0 %) 0.8 0.3 Absolute Granulocytes (1.4 - 6.5 /CUMM) 6.6 H 8.0 H Absolute Lymphocytes (1.2 - 3.4 /CUMM) 1.7 1.1 L Absolute Monocytes (0.10 - 0.60 /CUMM) 0.8 H 0.7 H Absolute Eosinophils (0.0 - 0.7 /CUMM) 0.3 0.2 Absolute Basophils (0.0 - 0.2 /CUMM) 0.1 0 PUBS MCHC (33.0 - 37.0 G/DL) 33.7 33.6 Assessment/Plan Assessment/Plan Pt is a 45 yo F with morbid obesity, hypothyroidism and pre-diabetes, who is now HD #2 with acute perforated diverticulitis. She continues to improve clinically from a surgical standpoint. Except for a low grade temp of 99.2 last night, she has been afebrile and leukocytosis has resolved. Plan: -Continue IV antibiotics for now. -Continue clear liquids. Will likely be able to advance diet today, which may help with liquid stools. -Heplock IV fluids. Encourage po fluids. -Will check stool for c.diff, but pt doesn't really have risk factors. 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 -Dc protonix as pt is taking po now. -SC heparin, alps and ambulation for DVT ppx. -Consider discharge to home on po antibiotics, although source of diarrhea is unclear. Will d/w attending. Core Measures/Miscellaneous Venous Thromboembolism VTE Risk Factors: Age > 40, Surgery VTE Contraindications: No Contraindications VTE Diagnosis: No VTE Type: NONE VTE Confirmed by (Test): NONE Beta Ja Is Beta Ja a Home Med? No Antibiotics Is Patient on Antibiotics? Yes
[2016-08-08 15:09] VITALS: BP 126/84
--- NOTE | 2016-08-08 21:39 | Patient Discharge Instructions ---
Discharge Instructions General Discharge Information You were seen/treated for: perforated diverticulitis You had these procedures: bowel rest, IV antibiotics Watch for these problems: fever >101, increased abdominal pain, chest pain, difficulty breathing, dizziness No bath, but you may shower: Yes Diet Continue normal diet: No Recommended Diet: Low Residue, ADVANCE TOLERATED TO LOW FIBER DIET Activity Full Activity/No Limits: No Activity Self Limited: Yes Other activity limits: Avoid strenuous activity. Ok to ambulate. Acute Coronary Syndrome Inclusion Criteria At DC or during hospital stay patient has or had the following: ACS DIAGNOSIS No Discharge Core Measures Meds if any: Prescribed or Continued at Discharge Meds if any: NOT Prescribed or Continued at Discharge Congestive Heart Failure Inclusion Criteria At DC or during hospital stay patient has or had the following: CHF DIAGNOSIS No Discharge Core Measures Meds if any: Prescribed or Continued at Discharge Meds if any: NOT Prescribed or Continued at Discharge Cerebrovascular accident Inclusion Criteria At DC or during hospital stay patient has or had the following: CVA/TIA Diagnosis No Discharge Core Measures Meds if any: Prescribed or Continued at Discharge Meds if any: NOT Prescribed or Continued at Discharge Venous thromboembolism Inclusion Criteria VTE Diagnosis No VTE Type NONE VTE Confirmed by (Test) NONE Discharge Core Measures - Per Current guidelines, there needs to be overlap - treatment for the first 5 days of Warfarin therapy. - If discharged on Warfarin prior to 5 days of - overlap therapy, the patient will need to be - assessed for post discharge needs including - *Post discharge parental anticoagulation - *Warfarin and/or parental anticoagulation education - *Follow up date to check INR post discharge At least 5 days overlap therapy as Inpatient No Meds if any: Prescribed or Continued at Discharge Note: Overlap Therapy is Warfarin and Anticoagulant Meds if any: NOT Prescribed or Continued at Discharge
[2016-08-08 22:41] VITALS: BP 120/70
[2016-08-09 06:30] VITALS: BP 130/76
--- NOTE | 2016-08-09 08:27 | PN- General Surgery ---
See Addendum Subjective Subjective: OOB in chair Pt had numerous loose stools yesterday - mostly watery. She states that this actually started 2-3 days prior to this hospitalization. Today she had a loose stool which was less watery No nausea, no abdominal pain She also states that after a dose of toradol yesterday she felt a warm, burning sensation in her arms and legs which was concerning. No itching, no rash, no shortness of breath. She has no known allergies. Objective Vital Signs and I&Os Vital Signs Date Time Temp Pulse Resp B/P B/P Pulse O2 O2 Flow FiO2 Mean Ox Delivery Rate 08/09 0630 97.8 70 18 130/76 96 Room Air 08/08 2241 97.8 67 20 120/70 97 08/08 1509 98.1 88 20 126/84 98 Intake & Output 08/09 1600 08/09 0800 08/09 0000 08/08 1600 08/08 0800 08/08 0000 Intake Total 360 065 815 4084 600 Output Total Balance 360 985 011 7584 600 Intake, IV 350 1000 500 Intake, Oral 360 800 360 100 100 Number 1 9 2 2 Bowel Movements Physical Exam: afebrile, vss General: OOB in chair, ambulating without difficulty, oriented times three Abd: benign, nontender, good bowel sounds Assessment/Plan Assessment/Plan 45 yo female with diverticulitis/microperf - 1st episode low residue diet dc toradol stool was sent for culture - although unlikely c diff as pt wasn't on any antibiotics at the onset of diarrhea which seems to be improving Will discuss with Dr Cristobal Core Measures/Miscellaneous Venous Thromboembolism VTE Risk Factors: Age > 40, Surgery VTE Contraindications: No Contraindications VTE Diagnosis: No VTE Type: NONE VTE Confirmed by (Test): NONE Beta Ja Is Beta Ja a Home Med? No Antibiotics Is Patient on Antibiotics? Yes
[2016-08-09 14:10] VITALS: BP 120/70
--- NOTE | 2016-08-09 14:18 | CT SCAN REPORT ---
EXAMINATION: CT ABDOMEN AND PELVIS WITHOUT CONTRAST CLINICAL INFORMATION: Worsening abdominal pain COMPARISON: CT abdomen and pelvis 08/06/2016. TECHNIQUE: Multidetector volumetric imaging was performed from the superior aspect of the liver through the pubic symphysis. Sagittal and coronal reformatted images were obtained on the technologist's workstation. DLP: 1559 mGy-cm FINDINGS: LUNG BASES: The visualized lung bases are unremarkable. LIVER, GALLBLADDER, AND BILIARY TREE: The liver is normal in size, shape, and attenuation. No focal hepatic lesion or biliary ductal dilatation is present. The gallbladder is unremarkable with no evidence of radiopaque gallstones, gallbladder wall thickening, or obvious pericholecystic inflammatory changes. PANCREAS: Unremarkable. SPLEEN: Unremarkable. ADRENAL GLANDS: Unremarkable. KIDNEYS AND URETERS: The kidneys are normal in size, shape, and attenuation. No hydronephrosis, hydroureter, or calculi seen. No perinephric stranding. BLADDER: Unremarkable. GASTROINTESTINAL TRACT: As noted in the prior report, there is moderate thickening of the proximal to mid sigmoid colon with diverticula. There is significant pericolonic soft tissue stranding, similar to prior. Focal adjacent extraluminal gas is similar to the prior study with no drainable fluid collections appreciated. ABDOMINAL WALL: Small incidental bilateral spigelian hernias containing fat are noted, left greater than right side. LYMPH NODES: Normal. VASCULAR: Unremarkable. PELVIC VISCERA: The uterus and adnexa are unremarkable. OSSEOUS STRUCTURES: Unremarkable. IMPRESSION: 1. Findings consistent with perforated diverticulitis with localized extraluminal gas and soft tissue stranding. No drainable collections are seen. No evidence of pneumoperitoneum or bowel obstruction. The findings are not significant change from prior. 2. Bilateral small spigelian hernias are seen, left greater than right side without change.
[2016-08-09 14:26] LABS: ABSOLUTE BASOPHIL COUNT 0 /CUMM (0.0-0.2); ABSOLUTE EOSINOPHIL COUNT 0.1 /CUMM (0.0-0.7); ABSOLUTE GRANULOCYTE CT 12.9 /CUMM (1.4-6.5); ABSOLUTE LYMPH COUNT 0.9 /CUMM (1.2-3.4); ABSOLUTE MONOCYTE COUNT 0.1 /CUMM (0.10-0.60); BASOPHIL % 0 % (0.0-2.0); EOSINOPHIL % 0.7 % (0-5); HEMATOCRIT 41.7 % (37-47); MEAN CORPUSCULAR HGB 30.4 PG (27.0-31.0); MEAN CORPUSCULAR HGB CONC 33.3 G/DL (33.0-37.0); MEAN CORPUSCULAR VOLUME 91.3 FL (81.0-99.0); MEAN PLATELET VOLUME 7.5 FL (7.4-10.4); PLATELET COUNT 382 /CUMM (130-400); RBC DISTRIBUTION WIDTH 12.5 % (11.5-14.5); RED BLOOD CELL CT 4.56 /CUMM (4.20-5.40)
[2016-08-09 15:03] LABS: GRANULOCYTE % 92.1 % (42.2-75.2)
[2016-08-09 22:55] VITALS: BP 124/60
[2016-08-10 06:57] VITALS: BP 112/60
--- NOTE | 2016-08-10 08:43 | PN- General Surgery ---
See Addendum Subjective Subjective: Patient with complaints of flatulence and abdominal pressure associated with flatulence which is relieved after passing gas. She has no appetite. She denies any fever or flulike illness overnight. She had a CT scan yesterday which shows no significant change from her initial CT scan Objective Vital Signs and I&Os Vital Signs Date Time Temp Pulse Resp B/P B/P Pulse O2 O2 Flow FiO2 Mean Ox Delivery Rate 08/10 0657 99.8 98 20 112/60 92 Room Air 08/09 2255 99.7 96 20 124/60 95 Room Air 08/09 2000 100.0 08/09 1630 101.5 08/09 1410 98.3 95 20 120/70 96 Room Air Intake & Output 08/10 1600 08/10 0800 08/10 0000 08/09 1600 08/09 0800 08/09 0000 Intake Total 300 40 360 800 Output Total Balance 300 40 360 800 Intake, IV 100 30 Intake, Oral 200 10 360 800 Number 1 1 9 Bowel Movements Patient 279 lb Weight Physical Exam: Well-developed well-nourished no apparent distress. HEENT: Atraumatic, extraocular motion intact Neck: Supple, no lymphadenopathy Respiratory: No respiratory distress Abdomen: Obese, mild tenderness in left lower quadrant, positive bowel sounds Extremities: No edema, no calf pain Neuro: Alert and oriented x3 Psych: Mood affect normal, normal memory normal judgment. Skin: Warm and dry, no rash on exposed skin Results Last 48 Hours of Labs: Laboratory Tests 08/10 08/09 08/09 0625 1330 0620 Chemistry Sodium (137 - 145 mmol/L) Pending 138 Potassium (3.5 - 5.1 mmol/L) Pending 4.0 Chloride (98 - 107 mmol/L) Pending 103 Carbon Dioxide (22 - 30 mmol/L) Pending 26 Anion Gap (5 - 16) Pending 8 BUN (7 - 17 mg/dL) Pending 5 L Creatinine (0.5 - 1.0 mg/dL) Pending 0.6 Estimated GFR (>60 ml/min) > 60 BUN/Creatinine Ratio (7 - 25 %) Pending 8.3 Phosphorus Pending Magnesium (1.6 - 2.3 mg/dL) Pending 2.0 Hematology CBC w Diff Pending NO MAN DIFF REQ WBC (4.8 - 10.8 /CUMM) Pending 14.0 H RBC (4.20 - 5.40 /CUMM) Pending 4.56 Hgb (12.0 - 16.0 G/DL) Pending 13.9 Hct (37 - 47 %) Pending 41.7 MCV (81.0 - 99.0 FL) Pending 91.3 MCH (27.0 - 31.0 PG) Pending 30.4 RDW (11.5 - 14.5 %) Pending 12.5 Plt Count (130 - 400 /CUMM) Pending 382 MPV (7.4 - 10.4 FL) Pending 7.5 Gran % (42.2 - 75.2 %) 92.1 H Lymphocytes % (20.5 - 51.1 %) 6.7 L Monocytes % (1.7 - 9.3 %) 0.5 L Eosinophils % (0 - 5 %) 0.7 Basophils % (0.0 - 2.0 %) 0 L Absolute Granulocytes (1.4 - 6.5 /CUMM) 12.9 H Absolute Lymphocytes (1.2 - 3.4 /CUMM) 0.9 L Absolute Monocytes (0.10 - 0.60 /CUMM) 0.1 L Absolute Eosinophils (0.0 - 0.7 /CUMM) 0.1 Absolute Basophils (0.0 - 0.2 /CUMM) 0 PUBS MCHC (33.0 - 37.0 G/DL) Pending 33.3 Assessment/Plan Assessment/Plan Hospital day #4 with diverticulitis and microperforation CT scan shows no significant change, we'll continue with antibiotics-Rocephin and Flagyl IV Clear liquid diet, follow I/O Out of bed ad racheal. Heparin subcutaneous for DVT prophylaxis. Protonix IV for GI prophylaxis Follow labs this morning, monitoring with blood cell count and fever trend Core Measures/Miscellaneous Venous Thromboembolism VTE Risk Factors: Age > 40, Surgery VTE Contraindications: No Contraindications VTE Diagnosis: No VTE Type: NONE VTE Confirmed by (Test): NONE Beta Ja Is Beta Ja a Home Med? No Antibiotics Is Patient on Antibiotics? Yes
[2016-08-10 08:55] LABS: ABSOLUTE BASOPHIL COUNT 0 /CUMM (0.0-0.2); ABSOLUTE EOSINOPHIL COUNT 0 /CUMM (0.0-0.7); ABSOLUTE GRANULOCYTE CT 18.5 /CUMM (1.4-6.5); ABSOLUTE LYMPH COUNT 1.5 /CUMM (1.2-3.4); ABSOLUTE MONOCYTE COUNT 1.1 /CUMM (0.10-0.60); BASOPHIL % 0 % (0.0-2.0); EOSINOPHIL % 0.2 % (0-5); GRANULOCYTE % 87.6 % (42.2-75.2); HEMATOCRIT 37.9 % (37-47); MEAN CORPUSCULAR HGB 30.7 PG (27.0-31.0); MEAN CORPUSCULAR HGB CONC 33.6 G/DL (33.0-37.0); MEAN CORPUSCULAR VOLUME 91.4 FL (81.0-99.0); MEAN PLATELET VOLUME 6.9 FL (7.4-10.4); PLATELET COUNT 424 /CUMM (130-400); RBC DISTRIBUTION WIDTH 12.8 % (11.5-14.5); RED BLOOD CELL CT 4.15 /CUMM (4.20-5.40)
[2016-08-10 13:48] VITALS: BP 122/70
[2016-08-10 22:15] VITALS: BP 120/72
[2016-08-11 06:30] VITALS: BP 124/72
--- NOTE | 2016-08-11 07:29 | PN- General Surgery ---
Subjective Subjective: Reports feeling well this morning. Diet regressed to NPO yesterday with lab result of increasing leukocytosis but clinically stable. She reports several bms and +flatus. No abdominal pain currently. Ambulating without difficulty. No dizziness. No shortness of breath. No f/c/s. Voiding well. Objective Vital Signs and I&Os Vital Signs Date Time Temp Pulse Resp B/P B/P Pulse O2 O2 Flow FiO2 Mean Ox Delivery Rate 08/11 629 99.9 96 20 124/72 95 Room Air 08/10 2215 98.7 94 20 120/72 98 08/10 1348 98.7 93 20 122/70 97 Room Air Intake & Output 08/11 0808/11 0000 08/10 1600 08/10 0808/10 0000 08/09 1600 Intake Total 883 819 6905 300 40 Output Total Balance 038 248 4522 300 40 Intake, IV 800 800 400 100 30 Intake, Oral 60 120 600 200 10 Number 1 Bowel Movements Patient 279 lb Weight Physical Exam: General - alert & oriented x 3. comfortable. out of bed to chair. no acute distress. Lungs - clear bilaterally. no w/r/r. Cardiac - s1s2. reg. Abdomen - soft. bowel sounds appreciated. nontender. Extremities - warm bilaterally. no c/c/e. calves soft and nontender b/l. Current Medications: Current Medications Sig/Evy Start time Last Medication Dose Route Stop Time Status Admin Acetaminophen 1,000 MG Q6P PRN 08/09 1800 AC N/A 1 UNIT IV Acetaminophen 650 MG Q4P PRN 08/09 0830 AC PO Ceftriaxone Sodium 1,000 MG DAILY 08/07 0600 AC 08/10 IV 0913 Heparin Sodium 5,000 UNIT Q8 08/06 1400 AC (Porcine) SC Levothyroxine Sodium 0.1 MG DAILY AC 08/06 0815 AC 08/11 PO 0550 Liothyronine Sodium 25 MCG BID 08/06 0815 AC 08/10 PO 2123 Metronidazole 500 MG IQ8 08/06 1400 AC 08/10 N/A 1 UNIT IV 2317 Morphine Sulfate 2 MG Q2P PRN 08/09 1630 AC IV Ondansetron HCl 4 MG Q6P PRN 08/06 0815 AC 08/09 IV 1839 Patient Medication 1 ED .STK-MED ONE 08/10 1422 NV Teaching ED 05/23 1423 Potassium Chloride 20 MEQ Q10H 08/10 1030 AC 08/10 Dextrose/Sodium 1,000 ML IV 2317 Chloride Results Last 48 Hours of Labs: Laboratory Tests 08/11 08/10 0630 0625 Chemistry Sodium (137 - 145 mmol/L) Pending 136 L Potassium (3.5 - 5.1 mmol/L) Pending 3.8 Chloride (98 - 107 mmol/L) Pending 97 L Carbon Dioxide (22 - 30 mmol/L) Pending 25 Anion Gap (5 - 16) Pending 13 BUN (7 - 17 mg/dL) Pending 5 L Creatinine (0.5 - 1.0 mg/dL) Pending 0.7 Estimated GFR (>60 ml/min) > 60 BUN/Creatinine Ratio (7 - 25 %) Pending 7.1 Phosphorus (2.5 - 4.5 mg/dL) 4.2 Magnesium (1.6 - 2.3 mg/dL) 1.8 Hematology CBC w Diff Pending MAN DIFF ORDERED WBC (4.8 - 10.8 /CUMM) Pending 21.2 H RBC (4.20 - 5.40 /CUMM) Pending 4.15 L Hgb (12.0 - 16.0 G/DL) Pending 12.7 Hct (37 - 47 %) Pending 37.9 MCV (81.0 - 99.0 FL) Pending 91.4 MCH (27.0 - 31.0 PG) Pending 30.7 RDW (11.5 - 14.5 %) Pending 12.8 Plt Count (130 - 400 /CUMM) Pending 424 H MPV (7.4 - 10.4 FL) Pending 6.9 L Gran % (42.2 - 75.2 %) 87.6 H Lymphocytes % (20.5 - 51.1 %) 7.1 L Monocytes % (1.7 - 9.3 %) 5.1 Eosinophils % (0 - 5 %) 0.2 Basophils % (0.0 - 2.0 %) 0 L Absolute Granulocytes (1.4 - 6.5 /CUMM) 18.5 H Segmented Neutrophils (42.2 - 75.2 %) 80 H Band Neutrophils (0.0 - 5.0 %) 6 H Absolute Lymphocytes (1.2 - 3.4 /CUMM) 1.5 Lymphocytes (20.5 - 51.1 %) 5 L Monocytes (1.7 - 9.3 %) 9 Absolute Monocytes (0.10 - 0.60 /CUMM) 1.1 H Absolute Eosinophils (0.0 - 0.7 /CUMM) 0 Absolute Basophils (0.0 - 0.2 /CUMM) 0 Normocytic RBCs VERIFIED Normochromic RBCs VERIFIED PUBS MCHC (33.0 - 37.0 G/DL) Pending 33.6 08/09 1330 Hematology CBC w Diff NO MAN DIFF REQ WBC (4.8 - 10.8 /CUMM) 14.0 H RBC (4.20 - 5.40 /CUMM) 4.56 Hgb (12.0 - 16.0 G/DL) 13.9 Hct (37 - 47 %) 41.7 MCV (81.0 - 99.0 FL) 91.3 MCH (27.0 - 31.0 PG) 30.4 RDW (11.5 - 14.5 %) 12.5 Plt Count (130 - 400 /CUMM) 382 MPV (7.4 - 10.4 FL) 7.5 Gran % (42.2 - 75.2 %) 92.1 H Lymphocytes % (20.5 - 51.1 %) 6.7 L Monocytes % (1.7 - 9.3 %) 0.5 L Eosinophils % (0 - 5 %) 0.7 Basophils % (0.0 - 2.0 %) 0 L Absolute Granulocytes (1.4 - 6.5 /CUMM) 12.9 H Absolute Lymphocytes (1.2 - 3.4 /CUMM) 0.9 L Absolute Monocytes (0.10 - 0.60 /CUMM) 0.1 L Absolute Eosinophils (0.0 - 0.7 /CUMM) 0.1 Absolute Basophils (0.0 - 0.2 /CUMM) 0 PUBS MCHC (33.0 - 37.0 G/DL) 33.3 Assessment/Plan Assessment/Plan 45 year old female HD#5 acute diverticulitis and microperforation may consider re-trying clears today f/u labs continue iv rocephin / flagyl hep sc - dvt ppx protonix iv - gi ppx oob/ambulation will d/w Core Measures/Miscellaneous Venous Thromboembolism VTE Risk Factors: Age > 40, Surgery VTE Contraindications: No Contraindications VTE Diagnosis: No VTE Type: NONE VTE Confirmed by (Test): NONE Beta Ja Is Beta Ja a Home Med? No Antibiotics Is Patient on Antibiotics? Yes
[2016-08-11 08:07] LABS: ABSOLUTE BASOPHIL COUNT 0 /CUMM (0.0-0.2); ABSOLUTE EOSINOPHIL COUNT 0.1 /CUMM (0.0-0.7); ABSOLUTE GRANULOCYTE CT 15.6 /CUMM (1.4-6.5); ABSOLUTE LYMPH COUNT 1.7 /CUMM (1.2-3.4); ABSOLUTE MONOCYTE COUNT 1.3 /CUMM (0.10-0.60); BASOPHIL % 0.1 % (0.0-2.0); EOSINOPHIL % 0.5 % (0-5); GRANULOCYTE % 83.4 % (42.2-75.2); HEMATOCRIT 36.5 % (37-47); MEAN CORPUSCULAR HGB 30.9 PG (27.0-31.0); MEAN CORPUSCULAR VOLUME 90.8 FL (81.0-99.0); PLATELET COUNT 431 /CUMM (130-400); RBC DISTRIBUTION WIDTH 12.8 % (11.5-14.5); RED BLOOD CELL CT 4.01 /CUMM (4.20-5.40)
[2016-08-11 09:47] LABS: WHITE BLOOD CELL COUNT 18.7 /CUMM (4.8-10.8)
[2016-08-11 14:25] VITALS: BP 120/66
--- NOTE | 2016-08-11 18:02 | PN- General Surgery ---
Subjective Subjective: Follow-up of diverticulitis, feels better no shortness of breath chest pain nausea abdominal pain is better still having small soft bowel movements rarely tolerating clear liquids but not a lot Objective Vital Signs and I&Os I reviewed Vital Signs Date Time Temp Pulse Resp B/P B/P Pulse O2 O2 Flow FiO2 Mean Ox Delivery Rate 08/11 2316 98.9 90 20 108/80 96 Room Air 08/11 1425 98.5 106 20 120/66 96 I reviewed Intake & Output 08/12 0808/12 0000 08/11 1600 08/11 0808/11 0000 Intake Total 980 860 920 Output Total 400 Balance 580 860 920 Intake, IV 300 800 800 Intake, Oral 680 60 120 Number 3 Bowel Movements Output, Urine 400 Physical Exam: Constitutional: no acute distress no pain Eyes: sclera anicteric ENMT: moist mucous membranes Cardiovascular: S1-S2 no murmurs no peripheral edema Respiratory: clear to auscultation with normal respiratory effort and no intercostal retractions GI: abdomen soft nontender nondistended Extremities / lymphatics: free range of motion no peripheral edema Skin: no jaundice no rashes warm, nondiaphoretic Psychiatric: mood and affect are appropriate and alert and oriented to person place and time Current Medications: I reviewed Current Medications Sig/Evy Start time Last Medication Dose Route Stop Time Status Admin Acetaminophen 325 MG .STK-MED ONE 08/11 0908 DC PO 08/11 0909 Acetaminophen 1,000 MG Q6P PRN 08/09 1800 AC N/A 1 UNIT IV Acetaminophen 650 MG Q4P PRN 08/09 0830 AC 08/11 PO 0908 Ceftriaxone Sodium 1,000 MG DAILY 08/07 0600 AC 08/11 IV 0910 Heparin Sodium 5,000 UNIT Q8 08/06 1400 AC 08/11 (Porcine) SC 1342 Levothyroxine Sodium 0.1 MG DAILY AC 08/06 0815 AC 08/11 PO 0550 Liothyronine Sodium 25 MCG BID 08/06 0815 AC 08/11 PO 0909 Metronidazole 500 MG IQ8 08/06 1400 AC 08/11 N/A 1 UNIT IV 1617 Morphine Sulfate 2 MG Q2P PRN 08/09 1630 AC IV Ondansetron HCl 4 MG Q6P PRN 08/06 0815 AC 08/09 IV 1839 Patient Medication 1 ED .STK-MED ONE 08/11 1415 [facility] ED 08/11 1416 Potassium Chloride 20 MEQ Q10H 08/10 1030 AC 08/11 Dextrose/Sodium 1,000 ML IV 1350 Chloride Results Last 48 Hours of Labs: I reviewed Laboratory Tests 08/11 08/10 0630 0625 Chemistry Sodium (137 - 145 mmol/L) 135 L 136 L Potassium (3.5 - 5.1 mmol/L) 4.2 3.8 Chloride (98 - 107 mmol/L) 101 97 L Carbon Dioxide (22 - 30 mmol/L) 26 25 Anion Gap (5 - 16) 8 13 BUN (7 - 17 mg/dL) 7 5 L Creatinine (0.5 - 1.0 mg/dL) 0.6 0.7 Estimated GFR (>60 ml/min) > 60 > 60 BUN/Creatinine Ratio (7 - 25 %) 11.7 7.1 Phosphorus (2.5 - 4.5 mg/dL) 4.2 Magnesium (1.6 - 2.3 mg/dL) 1.8 Hematology CBC w Diff NO MAN DIFF REQ MAN DIFF ORDERED WBC (4.8 - 10.8 /CUMM) 18.7 H 21.2 H RBC (4.20 - 5.40 /CUMM) 4.01 L 4.15 L Hgb (12.0 - 16.0 G/DL) 12.4 12.7 Hct (37 - 47 %) 36.5 L 37.9 MCV (81.0 - 99.0 FL) 90.8 91.4 MCH (27.0 - 31.0 PG) 30.9 30.7 RDW (11.5 - 14.5 %) 12.8 12.8 Plt Count (130 - 400 /CUMM) 431 H 424 H MPV (7.4 - 10.4 FL) 7.0 L 6.9 L Gran % (42.2 - 75.2 %) 83.4 H 87.6 H Lymphocytes % (20.5 - 51.1 %) 9.0 L 7.1 L Monocytes % (1.7 - 9.3 %) 7.0 5.1 Eosinophils % (0 - 5 %) 0.5 0.2 Basophils % (0.0 - 2.0 %) 0.1 0 L Absolute Granulocytes (1.4 - 6.5 /CUMM) 15.6 H 18.5 H Segmented Neutrophils (42.2 - 75.2 %) 80 H Band Neutrophils (0.0 - 5.0 %) 6 H Absolute Lymphocytes (1.2 - 3.4 /CUMM) 1.7 1.5 Lymphocytes (20.5 - 51.1 %) 5 L Monocytes (1.7 - 9.3 %) 9 Absolute Monocytes (0.10 - 0.60 /CUMM) 1.3 H 1.1 H Absolute Eosinophils (0.0 - 0.7 /CUMM) 0.1 0 Absolute Basophils (0.0 - 0.2 /CUMM) 0 0 Normocytic RBCs VERIFIED Normochromic RBCs VERIFIED PUBS MCHC (33.0 - 37.0 G/DL) 34.0 33.6 Assessment/Plan Assessment/Plan Sigmoid diverticulitis a little tachycardic may be developing an abscess the right but cell count has stopped increasing her pain is better so for now continue present care will not do surgery as yet monitor for persistent tachycardia and fevers. If she develops an abscess she may need a perc drain. Problem List: 1. Sigmoid diverticulitis 2. Diabetes Core Measures/Miscellaneous Venous Thromboembolism VTE Risk Factors: Age > 40, Surgery VTE Contraindications: No Contraindications VTE Diagnosis: No VTE Type: NONE VTE Confirmed by (Test): NONE Beta Ja Is Beta Ja a Home Med? No Antibiotics Is Patient on Antibiotics? Yes
[2016-08-11 23:16] VITALS: BP 108/80
[2016-08-12 06:00] VITALS: BP 128/70
[2016-08-12 08:11] LABS: ABSOLUTE BASOPHIL COUNT 0 /CUMM (0.0-0.2); ABSOLUTE EOSINOPHIL COUNT 0.2 /CUMM (0.0-0.7); ABSOLUTE GRANULOCYTE CT 10.8 /CUMM (1.4-6.5); ABSOLUTE LYMPH COUNT 1.4 /CUMM (1.2-3.4); ABSOLUTE MONOCYTE COUNT 0.7 /CUMM (0.10-0.60); BASOPHIL % 0 % (0.0-2.0); EOSINOPHIL % 1.7 % (0-5); GRANULOCYTE % 82.1 % (42.2-75.2); HEMATOCRIT 35.1 % (37-47); MEAN CORPUSCULAR HGB 30.9 PG (27.0-31.0); MEAN CORPUSCULAR HGB CONC 33.6 G/DL (33.0-37.0); MEAN PLATELET VOLUME 6.7 FL (7.4-10.4); PLATELET COUNT 379 /CUMM (130-400); RBC DISTRIBUTION WIDTH 13.2 % (11.5-14.5); RED BLOOD CELL CT 3.82 /CUMM (4.20-5.40); WHITE BLOOD CELL COUNT 13.2 /CUMM (4.8-10.8)
--- NOTE | 2016-08-12 09:40 | PN- General Surgery ---
Subjective Subjective: Pt. reports she overall feels better although had some "gas like" spasms and feeling mildly bloated today. Sipping on clears without nausea or emesis. Has no appetite. Reports passing flatus, had loose BM this morning Objective Vital Signs and I&Os Vital Signs Date Time Temp Pulse Resp B/P B/P Pulse O2 O2 Flow FiO2 Mean Ox Delivery Rate 08/12 0600 98.7 87 18 128/70 97 Room Air 08/11 2316 98.9 90 20 108/80 96 Room Air 08/11 1425 98.5 106 20 120/66 96 Intake & Output 08/12 1600 08/12 0800 08/12 0000 08/11 1600 08/11 0800 08/11 0000 Intake Total 900 1140 980 860 920 Output Total 800 1000 400 Balance 100 140 580 860 920 Intake, IV 600 900 300 800 800 Intake, Oral 300 240 680 60 120 Number 3 Bowel Movements Output, Urine 800 1000 400 Alert, appropriate, comfortable Lungs clear COR regular Abdomen: obese, soft, mild distention. Very minimal tenderness in lower abdomen to deep palpation.No tympany or peritoneal signs. Assessment/Plan Assessment/Plan Diverticulitis with microperforation HD#6 Her abdomen is as expected, has mild distention and mild tenderenss, but overall clinically has been slowly improving.She has evidence of bowel fxn. Her leukocytosis has been trending down. Given fact that she failed treatment on 08/09 ( clinical change without significant change on CT scan) and has some spasms today and no appetite, would await advancing diet Cont, abx ( rocephin /Flagyl) DM. She was on Metformin prior to admission. Will check BS today (add on labs) Core Measures/Miscellaneous Venous Thromboembolism VTE Risk Factors: Age > 40, Surgery VTE Contraindications: No Contraindications VTE Diagnosis: No VTE Type: NONE VTE Confirmed by (Test): NONE Beta Ja Is Beta Ja a Home Med? No Antibiotics Is Patient on Antibiotics? Yes
--- NOTE | 2016-08-12 13:37 | PN- General Surgery ---
Subjective Subjective: Follow-up of diverticulitis Overnight no sweats she had one episode of pain after a bowel movement but that has dissipated otherwise no nausea no pain now still not that hungry Objective Vital Signs and I&Os I reviewed Vital Signs Date Time Temp Pulse Resp B/P B/P Pulse O2 O2 Flow FiO2 Mean Ox Delivery Rate 08/12 599 98.7 87 18 128/70 97 Room Air 08/11 2316 98.9 90 20 108/80 96 Room Air 08/11 1425 98.5 106 20 120/66 96 I reviewed Intake & Output 08/12 0808/12 0000 08/11 1600 08/11 0800 08/11 0000 Intake Total 900 1140 980 860 920 Output Total 800 1000 400 Balance 100 140 580 860 920 Intake, IV 600 900 300 800 800 Intake, Oral 300 240 680 60 120 Number 3 Bowel Movements Output, Urine 800 1000 400 Physical Exam: Constitutional: no acute distress no pain Eyes: sclera anicteric ENMT: moist mucous membranes Cardiovascular: S1-S2 no murmurs no peripheral edema Respiratory: clear to auscultation with normal respiratory effort and no intercostal retractions GI: abdomen soft nontender nondistended Extremities / lymphatics: free range of motion no peripheral edema Skin: no jaundice no rashes warm, nondiaphoretic Psychiatric: mood and affect are appropriate and alert and oriented to person place and time Current Medications: I reviewed Current Medications Sig/Evy Start time Last Medication Dose Route Stop Time Status Admin Acetaminophen 1,000 MG Q6P PRN 08/09 1800 AC N/A 1 UNIT IV Acetaminophen 650 MG Q4P PRN 08/09 0830 AC 08/11 PO 0908 Ceftriaxone Sodium 1,000 MG DAILY 08/07 0600 AC 08/12 IV 0859 Heparin Sodium 5,000 UNIT Q8 08/06 1400 AC 08/11 (Porcine) SC 1342 Levothyroxine Sodium 0.1 MG DAILY AC 08/06 0815 AC 08/12 PO 0555 Liothyronine Sodium 25 MCG BID 08/06 0815 AC 08/12 PO 0859 Metronidazole 500 MG IQ8 08/06 1400 AC 08/12 N/A 1 UNIT IV 0859 Morphine Sulfate 2 MG Q2P PRN 08/09 1630 AC IV Ondansetron HCl 4 MG Q6P PRN 08/06 0815 AC 08/09 IV 1839 Patient Medication 1 ED .[facility]-MED ONE 08/11 1415 DC Teaching ED 08/11 1416 Potassium Chloride 20 MEQ Q10H 08/10 1030 DC 08/12 Dextrose/Sodium 1,000 ML IV 0003 Chloride Results Last 48 Hours of Labs: I reviewed Laboratory Tests 08/12 08/11 0708 0630 Chemistry Sodium (137 - 145 mmol/L) 138 135 L Potassium (3.5 - 5.1 mmol/L) 4.0 4.2 Chloride (98 - 107 mmol/L) 104 101 Carbon Dioxide (22 - 30 mmol/L) 25 26 Anion Gap (5 - 16) 9 8 BUN (7 - 17 mg/dL) 4 L 7 Creatinine (0.5 - 1.0 mg/dL) 0.5 0.6 Estimated GFR (>60 ml/min) > 60 > 60 BUN/Creatinine Ratio (7 - 25 %) 8.0 11.7 Glucose (65 - 99 mg/dL) 108 H Hematology CBC w Diff NO MAN DIFF REQ NO MAN DIFF REQ WBC (4.8 - 10.8 /CUMM) 13.2 H 18.7 H RBC (4.20 - 5.40 /CUMM) 3.82 L 4.01 L Hgb (12.0 - 16.0 G/DL) 11.8 L 12.4 Hct (37 - 47 %) 35.1 L 36.5 L MCV (81.0 - 99.0 FL) 92.0 90.8 MCH (27.0 - 31.0 PG) 30.9 30.9 RDW (11.5 - 14.5 %) 13.2 12.8 Plt Count (130 - 400 /CUMM) 379 431 H MPV (7.4 - 10.4 FL) 6.7 L 7.0 L Gran % (42.2 - 75.2 %) 82.1 H 83.4 H Lymphocytes % (20.5 - 51.1 %) 10.9 L 9.0 L Monocytes % (1.7 - 9.3 %) 5.3 7.0 Eosinophils % (0 - 5 %) 1.7 0.5 Basophils % (0.0 - 2.0 %) 0 L 0.1 Absolute Granulocytes (1.4 - 6.5 /CUMM) 10.8 H 15.6 H Absolute Lymphocytes (1.2 - 3.4 /CUMM) 1.4 1.7 Absolute Monocytes (0.10 - 0.60 /CUMM) 0.7 H 1.3 H Absolute Eosinophils (0.0 - 0.7 /CUMM) 0.2 0.1 Absolute Basophils (0.0 - 0.2 /CUMM) 0 0 PUBS MCHC (33.0 - 37.0 G/DL) 33.6 34.0 Assessment/Plan Assessment/Plan Impression is improved clinically overnight white blood cell count down to 13 she's remained afebrile and less tachycardic so we will try again to advance diet to full's at first and hep lock her IV continue present care otherwise. Problem List: 1. Sigmoid diverticulitis 2. Diabetes Core Measures/Miscellaneous Venous Thromboembolism VTE Risk Factors: Age > 40, Surgery VTE Contraindications: No Contraindications VTE Diagnosis: No VTE Type: NONE VTE Confirmed by (Test): NONE Beta Ja Is Beta Ja a Home Med? No Antibiotics Is Patient on Antibiotics? Yes
[2016-08-12 14:42] VITALS: BP 116/70
[2016-08-12 22:29] VITALS: BP 140/84
[2016-08-13 06:30] VITALS: BP 118/70
--- NOTE | 2016-08-13 07:39 | PN- General Surgery ---
Subjective Subjective: Patient feels well this am. States that she had minor gas like sensation this am that resolved after a bowel movement. She describes her bm as loose but more formed than previous. She also states that her bms are less frequent. She denies any nausea or vomitting. She denies any of her previously reported cramping/contraction like discomfort. She did have creamy soup for dinner and states that she moved her bowels shortly thereafter but did not experience pain after eating. She denies malaise. She denies chest pain, shortness of breath and difficulty breathing. Objective Vital Signs and I&Os Vital Signs Date Time Temp Pulse Resp B/P B/P Pulse O2 O2 Flow FiO2 Mean Ox Delivery Rate 08/13 0630 99.4 83 18 118/70 95 Room Air 08/12 2229 99.2 90 20 140/84 96 Room Air 08/12 1442 98.9 73 20 116/70 97 Room Air Intake & Output 08/13 0800 08/13 0000 08/12 1600 08/12 0800 08/12 0000 08/11 1600 Intake Total 370 600 465 877 7534 980 Output Total 235 843 1247 400 Balance 370 600 180 100 140 580 Intake, IV 120 300 600 900 300 Intake, Oral 250 600 480 300 240 680 Number 2 3 Bowel Movements Output, Urine 971 436 9545 400 Physical Exam: General: Alert and oriented x3, no distress Cardiac: RRR, s1s2 Pulm: Unlabored respiratory effort, cta bilaterally Abdomen: Obese,Soft, non-tender to palpation presently Extremities: Moves all extremities, distal sensation intact, skin warm and well perfused, calves soft and nontender bialterally Assessment/Plan Assessment/Plan This is a 45 year old female who is now hospital day 7 for perforated diverticulitis, feeling well today -F/U am labs, WBC has been trending down -Continue full liquid diet -Continue IV abx -Will consider advancing to low residue diet possibly later today -Will d/w Dr. Cristobal Core Measures/Miscellaneous Venous Thromboembolism VTE Risk Factors: Age > 40, Surgery VTE Contraindications: No Contraindications VTE Diagnosis: No VTE Type: NONE VTE Confirmed by (Test): NONE Beta Ja Is Beta Ja a Home Med? No Antibiotics Is Patient on Antibiotics? Yes
[2016-08-13 08:08] LABS: ABSOLUTE BASOPHIL COUNT 0 /CUMM (0.0-0.2); ABSOLUTE EOSINOPHIL COUNT 0.3 /CUMM (0.0-0.7); ABSOLUTE GRANULOCYTE CT 10.2 /CUMM (1.4-6.5); ABSOLUTE LYMPH COUNT 1.6 /CUMM (1.2-3.4); ABSOLUTE MONOCYTE COUNT 0.8 /CUMM (0.10-0.60); BASOPHIL % 0.3 % (0.0-2.0); EOSINOPHIL % 2.2 % (0-5); GRANULOCYTE % 78.7 % (42.2-75.2); HEMATOCRIT 35.5 % (37-47); MEAN CORPUSCULAR HGB 30.5 PG (27.0-31.0); MEAN CORPUSCULAR HGB CONC 33.4 G/DL (33.0-37.0); MEAN CORPUSCULAR VOLUME 91.5 FL (81.0-99.0); MEAN PLATELET VOLUME 6.9 FL (7.4-10.4); PLATELET COUNT 419 /CUMM (130-400); RBC DISTRIBUTION WIDTH 12.7 % (11.5-14.5); RED BLOOD CELL CT 3.87 /CUMM (4.20-5.40); WHITE BLOOD CELL COUNT 12.9 /CUMM (4.8-10.8)
[2016-08-13 14:06] VITALS: BP 118/64
[2016-08-13] MEDS ORDERED: CIPRO500 M1 PO (18:46)
[2016-08-13] MEDS ORDERED: FLAGYL500 MG PO (18:46)
[2016-08-14 08:01] LABS: WHITE BLOOD CELL COUNT 21.2 /CUMM (4.8-10.8)
--- NOTE | 2016-08-17 18:07 | Discharge Summary ---
Visit Information Visit Dates Admission Date: 08/06/16 Discharge Date: 08/13/16 Hospital Course Course Attending Physician: GUMARO BLAKE,GRISELDA Ley Primary Care Physician: UNKNOWN Hospital Course: Admitted with sigmoid acute diverticulitis, leukocytosis up to 21, for a day hospital course was marked by IV antibiotics bowel rest gradual improvement and then a relapse of the nd with fever of 101.[address] scan which really didn't show much difference but she had increased pain and made her npo again, but blood cell count went up to 21 again BUT she improved again, and there were no obvious signs of pericolic abscess so we did not operate we just gradually advanced her diet and her pain resolved over a few days she was having bowel movements without pain or cramping fever dissipated the white blood cell count came down to 12 and because clinically her exam had improved so much, estimated her tachycardia and temperature, we decided to send her home and let her advance her diet herself we discussed diet she can have some ground beef and some eggs but stay on full liquids for a little while include yogurt. Vital signs MAXIMUM TEMPERATURE 99.4, then 98.4 in the afternoon, pulse it comes on 83 she was tachycardic before respirations 18 Constitutional: no acute distress no pain Eyes: sclera anicteric ENMT: moist mucous membranes Cardiovascular: S1-S2 no murmurs no peripheral edema Respiratory: clear to auscultation with normal respiratory effort and no intercostal retractions GI: abdomen soft nontender nondistended Extremities / lymphatics: free range of motion no peripheral edema Skin: no jaundice no rashes warm, nondiaphoretic Psychiatric: mood and affect are appropriate and alert and oriented to person place and time Labs White blood cell count 12.9 hemoglobin 12 platelets 419 Impression is sigmoid diverticulitis no obvious abscess but we discussed that this could develop this disease smolders but she could go home as mentioned above and will follow as an outpatient especially if the symptoms recur. Continue oral antibiotics 10 days more Allergies: Coded Allergies: No Known Allergies (08/06/16) Disposition Summary Disposition Principal Diagnosis: Acute diverticulitis sigmoid colon Additional Diagnosis: None acute Discharge Disposition: home or self care Discharge Instructions General Discharge Information Code Status: Full Code (pono) Patient's Diet: Discussed, avoid large portions of high fiber for now Patient's Activity: Avoid straining of Follow-Up Instructions/Appts: As mentioned above Medications at Discharge Discharge Medications: Continue taking these medications: Metformin HCl (Metformin HCl ER) 500 MG TAB.ER.24H 1 Tablet ORAL TWICE DAILY Qty = 120 Comments: NOT TAKEN IN HOSPITAL Levothyroxine Sodium (Synthroid) 100 MCG TABLET 1 Tablet ORAL DAILY Qty = 90 Comments: NOT TAKEN Liothyronine Sodium (Cytomel) 25 MCG TABLET 1 Tablet ORAL TWICE DAILY Qty = 60 Comments: Last Taken: 08/13/16 Time: 1000 Start taking the following new medications: Ciprofloxacin HCl (Cipro) 500 MG TABLET 1 Tablet ORAL TWICE DAILY Days = 10 No Refills Metronidazole (Flagyl) 500 MG TABLET 1 Tablet ORAL TWICE DAILY Days = 10 No Refills Copies To: GUMARO BLAKE,GRISELDA Ley
== END 2016-08-13 19:27 | DRG 392 ==
LOC: ERH 03:47 → ERHI 07:15 → 2NA 07:15 → ENRESERV 11:37 → ENTRNSPT 13:05 → EDTRNSPTSTS 13:35 → EDTRNSPT 13:35 → EDTRNSPTTYP 13:35 → 2NA 13:42 → CMPTRNSPT 13:49 → 2NA 21:13
PROVIDERS: Emergency Medicine; Nurse Practitioner; Physician Assistant; Physician Assistant Surgical; ADMIT Surgery
DX: K57.20 Diverticulitis of large intestine with perforation and abscess without bleeding (principal); Z68.42 Body mass index [BMI] 45.0-49.9, adult; E66.01 Morbid (severe) obesity due to excess calories; E03.9 Hypothyroidism, unspecified; E11.9 Type 2 diabetes mellitus without complications; Z79.84 Long term (current) use of oral hypoglycemic drugs
CPT/HCPCS: 2NAP; 36415; 74176; 74177; 81001; 81025; 82436; 96361; 96374; 96375; J0131; J0696; J1644; J1885; J2270; J2405; J7042; S5012